=== PATIENT | male | born 1960 | race Caucasian/White ===

== ENCOUNTER → 2024-10-04 14:26 | Outpatient (REF) | payer BC, SELFPAY | LOC: EMG 14:26 | PROVIDERS: ATTENDING PHYSICIAN Family Medicine | DX: R20.0 Anesthesia of skin (principal); G62.9 Polyneuropathy, unspecified | CPT/HCPCS: 95886; 95912 ==

== ENCOUNTER → 2025-03-12 07:08 | Outpatient (REF) | payer BC, MEDICARE, SELFPAY | LOC: MRI 07:08 | PROVIDERS: ATTENDING PHYSICIAN Psychiatry & Neurology Neurology; FAMILY PHYSICIAN Family Medicine | DX: R26.89 Other abnormalities of gait and mobility (principal) | CPT/HCPCS: 70551 ==